=== PATIENT | female | born 1995 | race Caucasian/White ===

== ENCOUNTER 2019-01-02 09:59 | Emergency (ER) | payer MEDICAID, OTHER ==
[~2019-01-02] VITALS: Ht 160 cm; Wt 53.9 kg
[2019-01-02 10:06] VITALS: BP 115/57; PULSE 69; RESP 17; Ht 160 cm; Wt 53.9 kg
--- NOTE | 2019-01-02 12:48 | ERD ---
ER Documentation Chief Complaint Chief Complaint 17 WEEKS CO LOWER ABD PAIN. DENIES ANY VB HPI 23-year-old female presenting with pelvic cramping. Patient is about 17 weeks and states this morning she had very intense cramping. Denies any vaginal bleeding or fluid discharge from her pelvic region. A0. LNMP September 11. Being seen at [facility]. Denies medical problems. NKDA. Surgical history denies. Social history denies ROS All systems reviewed and are negative except as per history of present illness. Allergies Allergies: Coded Allergies: No Known Allergy (Unverified , 01/02/19) PMhx/Soc History of Surgery: No Anesthesia Reaction: No Hx Neurological Disorder: No Hx Respiratory Disorders: No Hx Cardiac Disorders: No Hx Psychiatric Problems: No Hx Miscellaneous Medical Probl: No Hx Alcohol Use: No Hx Substance Use: No Hx Tobacco Use: No Smoking Status: Never smoker FmHx Family History: No diabetes, No coronary disease, No other Physical Exam Vitals Vital Signs Date Temp Pulse Resp B/P (MAP) Pulse Ox O2 O2 Flow FiO2 Time Delivery Rate 01/02/19 98.4 69 17 115/57 99 10:06 (76) Physical Exam GENERAL: The patient is well-appearing, well-nourished, in no acute distress CHEST: Clear to auscultation bilaterally. There are no rales, wheezes or rhonchi. HEART: Regular rate and rhythm. No murmurs, clicks, rubs or gallops. ABDOMEN:Soft, nontender and nondistended. Good bowel sounds. No rebound or guarding. No gross peritonitis. No gross organomegaly or masses. Result Diagram: 01/02/19 1104 01/02/19 1104 Results 24 hrs Laboratory Tests Test 01/02/19 11:00 01/02/19 11:04 Urine Color YELLOW Urine Clarity SLIGHTLY CLOUDY Urine pH 8.0 Urine Specific [place] 1.017 Urine Ketones NEGATIVE mg/dL Urine Nitrite NEGATIVE mg/dL Urine Bilirubin NEGATIVE mg/dL Urine Urobilinogen NEGATIVE mg/dL Urine Leukocyte Esterase TRACE Caesar/ul Urine Microscopic RBC 0 /HPF Urine Microscopic WBC 2 /HPF Urine Squamous Epithelial Cells MODERATE /HPF Urine Bacteria FEW /HPF Urine Hemoglobin NEGATIVE mg/dL Urine Glucose NEGATIVE mg/dL Urine Total Protein NEGATIVE mg/dl White Blood Count 7.0 10^3/ul Red Blood Count 4.35 10^6/ul Hemoglobin 12.9 g/dl Hematocrit 38.4 % Mean Corpuscular Volume 88.3 fl Mean Corpuscular Hemoglobin 29.7 pg Mean Corpuscular Hemoglobin Concent 33.6 g/dl Red Cell Distribution Width 13.2 % Platelet Count 232 10^3/UL Mean Platelet Volume 10.2 fl Immature Granulocytes % 0.400 % Neutrophils % 70.9 % Lymphocytes % 19.4 % Monocytes % 7.6 % Eosinophils % 1.0 % Basophils % 0.7 % Nucleated Red Blood Cells % 0.0 /100WBC Immature Granulocytes # 0.030 10^3/ul Neutrophils # 5.0 10^3/ul Lymphocytes # 1.4 10^3/ul Monocytes # 0.5 10^3/ul Eosinophils # 0.1 10^3/ul Basophils # 0.1 10^3/ul Nucleated Red Blood Cells # 0.0 10^3/ul Sodium Level 138 mmol/L Potassium Level 4.4 mmol/L Chloride Level 106 mmol/L Carbon Dioxide Level 25 mmol/L Anion Gap 7 Blood Urea Nitrogen 8 mg/dl Creatinine 0.54 mg/dl Est Glomerular Filtrat Rate mL/min > 60 mL/min Glucose Level 78 mg/dl Calcium Level 9.2 mg/dl Total Bilirubin 0.7 mg/dl Direct Bilirubin 0.00 mg/dl Indirect Bilirubin 0.7 mg/dl Aspartate Amino Transf (AST/SGOT) 18 IU/L Alanine Aminotransferase (ALT/SGPT) 13 IU/L Alkaline Phosphatase 42 IU/L Total Protein 7.0 g/dl Albumin 3.9 g/dl Globulin 3.10 g/dl Albumin/Globulin Ratio 1.25 Lipase 142 U/L Procedures/[facility] DIAGNOSTIC IMAGING REPORT Patient: RADHA CHRISTENSEN : 1995 Age: 23 Sex: F MR #: [id number] DOS: 01/02/19 1055 Ordering MD: CASSIE RENEE PA-C Location: [facility] Room/Bed: PROCEDURE: US Obstetrical, limited CLINICAL INDICATION: Pelvic cramping TECHNIQUE: Multiple real-time images were acquired of the patient's maternal abdomen utilizing a curved array transducer. COMPARISON: None available FINDINGS: There is a single live intrauterine fetus positioned transversely with the head to the maternal right. The placenta is implanted anteriorly and is grade 1. No of placenta previa or abruptio is evident. The cervix is closed and measures 6.9 cm in length. The amniotic fluid index measures 15.2 cm. The heart rate is 139 beats per minute. Measurements: BPD: 3.58 cm, corresponds to a age of 17 weeks 0 days Head circumference: 13.61 cm, corresponds to a age of 17 weeks 0 days Abdominal circumference: 11.08 cm, corresponds to a age of 16 weeks 6 days Femoral length: 2.35 cm, corresponds to a age of 17 weeks 0 days Average age by ultrasound: 17 weeks 0 days plus or minus 1 week 1 day. Estimated weight: 177 g plus or minus 27 g. The EFW falls at 92%. IMPRESSION: 1. Single live intrauterine fetus, transverse presentation with the head to the maternal right. The heart rate is 139 bpm. 2. Anterior placenta, grade 1, no previa or abruptio is evident. 3. The cervix is closed and a trace measures 6.9 cm. 4. Estimated age by ultrasound: 17 weeks 0 days plus or minus 1 week 1 day. The estimated weight is 177 g. The EFW falls at 92%. The estimated date of delivery based on today's sonogram is 06/12/2019. MDM: 23-year-old female presenting with cramping. Patient's blood work and urine are negative. Ultrasound is within normal limits. Patient may have some mild dehydration which is causing some cramping however low suspicion for complication due to at this time. Patient is discharged with strict ER precautions and recommended follow-up with primary care. All questions answered at discharge Departure Diagnosis: Primary Impression: Abdominal cramps Condition: Stable Patient Instructions: : Common Questions Referrals: [facility] YOU HAVE RECEIVED A MEDICAL SCREENING EXAM AND THE RESULTS INDICATE THAT YOU DO NOT HAVE A CONDITION THAT REQUIRES URGENT TREATMENT IN THE EMERGENCY DEPARTMENT. FURTHER EVALUATION AND TREATMENT OF YOUR CONDITION CAN WAIT UNTIL YOU ARE SEEN IN YOUR DOCTORS OFFICE WITHIN THE NEXT 1-2 DAYS. IT IS YOUR RESPONSIBILITY TO MAKE AN APPOINTMENT FOR FOLOW-UP CARE. IF YOU HAVE A PRIMARY DOCTOR --you should call your primary doctor and schedule an appointment IF YOU DO NOT HAVE A PRIMARY DOCTOR YOU CAN CALL OUR PHYSICIAN REFERRAL HOTLINE AT IF YOU CAN NOT AFFORD TO SEE A PHYSICIAN YOU CAN CHOSE FROM THE FOLLOWING [facility] [address] [facility] [address] [facility] [address] [facility] [address] [facility]. [facility] [address] [facility]. [facility] [address] Additional Instructions: FOLLOW UP WITH YOUR PRIMARY CARE PHYSICIAN TOMORROW.Return to this facility if you are not improving as expected. RALPH RENEE PA-C Jan 02, 2019 12:48
== END 2019-01-02 11:45 | disposition home or self-care (01) ==
LOC: FTE 09:59
DX: O26.892 Other specified pregnancy related conditions, second trimester (principal); R10.30 Lower abdominal pain, unspecified; Z3A.17 17 weeks gestation of pregnancy
CPT/HCPCS: 36415; 76805; 76817; 80053; 81001; 83690; 85025; Z7502

== ENCOUNTER 2019-05-05 07:50 | Outpatient (CLI) | payer MEDICAID ==
[~2019-05-05] VITALS: Ht 160 cm; Wt 63.8 kg
[~2019-05-05 07:50] MED LIST: ACET500C5 PO; PREN1TAB71 PO
[2019-05-05 08:12] VITALS: Ht 160 cm; Wt 63.8 kg
[2019-05-05 08:13] VITALS: BP 102/65
--- NOTE | 2019-05-05 10:54 | PN ---
Triage Information Date/Time Reason for visit: Hip pain/sciatica pain Weeks of Gestation Patient is a 24-year-old 1 para 0 at 34 weeks and 2 days of gestation with estimated date of delivery June 14, 2019 Patient presents with chief complaint of hip pain with the pain level 9 out of 10 since last night. She reports that she took Tylenol which did not help with her pain She receives care at [facility] Patient reports positive movement, denies vaginal bleeding and leaking fluid, denies uterine contractions /Para Diabetes: none Hypertention: none Objective Vital Signs Date Temp Pulse Resp B/P (MAP) Pulse Ox O2 O2 Flow FiO2 Time Delivery Rate 05/05/19 98.0 102/65 Room Air 08:13 (77) Heart Rate: 140's Heart Rate Comments heart rate tracing category 1 Contractions: None Results/Medications Imaging Results PROCEDURE: US OB biophysical profile. CLINICAL INDICATION: decreased movements. Right-sided pain TECHNIQUE: Multiple sonographic images of the pelvis were obtained. The images were reviewed on a PACS workstation. COMPARISON: 01/02/2019 FINDINGS: Cervix length is 3.7 cm There is a single live intrauterine gestation. Cardiac activity is present with 132 beats per minute. There is a vertex presentation. The placenta is anterior, grade 1. There is no evidence of placental abruption. PHAN = 11.2 cm. Biophysical profile: movement 2/2 tone 2/2. breathing 2/2 PHAN 2/2 Total 04/29 RPTAT: AA . IMPRESSION: Normal biophysical profile. Physician Rama Date Time Electronically viewed and signed by Physician Rama on 05/05/2019 09:27 NS/ CC: GREY FRANCO MD [id number] PROCEDURE: US OB. CLINICAL INDICATION: 01/02/2019 TECHNIQUE: Multiple sonographic images of the pelvis were obtained. The images were reviewed on a PACS workstation. COMPARISON: No prior studies are available for comparison. FINDINGS: There is a single viable intrauterine gestation. Cardiac activity is present with 128 beats per minute. There is a vertex presentation. Measurements were made in order to determine age. The results are as follows: BPD = 8.8 cm corresponding to 35 weeks 5 days HC = 31.9 cm corresponding to 35 weeks 6 days AC = 30.2 cm corresponding to 34 weeks 1 day FL = 6.5 cm corresponding to 33 weeks 5 days. Estimated gestational age of approximately 34 weeks 6 days. The estimated date of delivery is 06/10/2019. The EFW = 2414 g, 39% The placenta is anterior, grade I. There is no evidence for an abruption or placenta previa. IMPRESSION: Single viable intrauterine gestation of approximately 34 weeks 6 days. The estimated date of delivery is 06/10/2019 . Physician Rama Date Time Electronically viewed and signed by Physician Rama on 05/05/2019 09:18 NS/ CC: GREY FRANCO MD [id number] Disposition: Discharge Assessment/Plan kick count instructions were given Labor precautions were given Patient was sent down to the emergency department for further evaluation of her hip pain Patient instructed to follow-up with [facility] in 1 to 2 days GREY FRANCO MD May 05, 2019 10:54
== END 2019-05-05 09:50 | disposition home or self-care (01) ==
LOC: OBT 07:50 → L-D 07:52 → OBT 09:50
PROVIDERS: ATTEND Obstetrics & Gynecology Gynecology
DX: O26.893 Other specified pregnancy related conditions, third trimester (principal); Z3A.34 34 weeks gestation of pregnancy; M25.559 Pain in unspecified hip; M54.30 Sciatica, unspecified side
CPT/HCPCS: 76815; 76817; 76818; Z7500; G0463

== ENCOUNTER 2019-05-05 10:12 | Emergency (ER) | payer MEDICAID, OTHER ==
[~2019-05-05] VITALS: Ht 160 cm; Wt 63.2 kg
[2019-05-05 10:16] VITALS: BP 110/67; PULSE 65; RESP 20; Ht 160 cm; Wt 63.2 kg
[2019-05-05] MEDS ORDERED: ACETAMINOPHEN 500 MG TAB PO STA (10:30)
--- NOTE | 2019-05-05 10:46 | ERD ---
ER Documentation Chief Complaint Chief Complaint cleared by OB - left hip pain - 34 weeks HPI 24-year-old female presenting with hip pain. Patient is about 34 weeks with no complications. She has severe pain to her left hip which is worse with walking. She denies any numbness or tingling and no changes in urination or bowel movement. No recent falls or injuries. She has not taken medications for her symptoms. Denies other medical problems. NKDA. Surgical history denies. Social history denies ROS All systems reviewed and are negative except as per history of present illness. Medications Home Meds Active Scripts Acetaminophen* (Tylophen*) 500 Mg Capsule, 2 CAP PO Q8H PRN for PAIN AND OR ELEVATED TEMP, #20 CAP Prov:RALPH RENEE PA-C 05/05/19 Reported Medications Vit No.130/Iron/FA ( Tablet) 1 Each Tablet, 1 EACH PO 05/05/19 Allergies Allergies: Coded Allergies: No Known Allergy (Unverified , 01/02/19) PMhx/Soc History of Surgery: No Anesthesia Reaction: No Hx Neurological Disorder: No Hx Respiratory Disorders: No Hx Cardiac Disorders: No Hx Psychiatric Problems: No Hx Miscellaneous Medical Probl: No Hx Alcohol Use: No Hx Substance Use: No Hx Tobacco Use: No Smoking Status: Never smoker FmHx Family History: No diabetes, No coronary disease, No other Physical Exam Vitals Vital Signs Date Temp Pulse Resp B/P (MAP) Pulse Ox O2 O2 Flow FiO2 Time Delivery Rate 05/05/19 97.8 65 20 110/67 98 10:16 (81) Physical Exam GENERAL: The patient is well-appearing, well-nourished, in no acute distress CHEST: Clear to auscultation bilaterally. There are no rales, wheezes or rho nchi. HEART: Regular rate and rhythm. No murmurs, clicks, rubs or gallops. BACK: No midline or flank tenderness. Tender palpation down left buttock extending down left leg. EXTREMITIES: Equal pulses bilaterally. There is no peripheral clubbing, cyanosi s or edema. No focal swelling or erythema. Full range of motion. Grossly neurovascularly intact. NEUROLOGIC: Alert and oriented. Cranial nerves II through XII intact. Motor strength in all 4 extremities with 5 out of 5 strength. Sensation grossly int act. Normal speech and gait. SKIN: There is no apparent rash or petechiae. The skin is warm and dry. Results 24 hrs Current Medications Medications Dose Sig/Cresencio Start Time Status Last (Trade) Ordered Route PRN Stop Time Admin Dose Reason Admin 1,000 mg ONCE STAT 05/05/19 DC 05/05/19 Acetaminophen PO 10:30 10:35 (Tylenol 05/05/19 10:31 Tab) Procedures/MDM MDM: 24-year-old female presenting with hip pain and back pain. Patient likely has inflammation due to sciatica in . I have low suspicion for urinary tract infection as patient does not have CVA tenderness. Patient has no other complaints. I have low suspicion for acute fracture dislocation and I do not feel blood work or imaging is indicated. Departure Diagnosis: Primary Impression: Hip pain Condition: Stable Patient Instructions: Back Pain W/ Sciatica Referrals: [facility] YOU HAVE RECEIVED A MEDICAL SCREENING EXAM AND THE RESULTS INDICATE THAT YOU DO NOT HAVE A CONDITION THAT REQUIRES URGENT TREATMENT IN THE EMERGENCY DEPARTMENT. FURTHER EVALUATION AND TREATMENT OF YOUR CONDITION CAN WAIT UNTIL YOU ARE SEEN IN YOUR DOCTORS OFFICE WITHIN THE NEXT 1-2 DAYS. IT IS YOUR RESPONSIBILITY TO MAKE AN APPOINTMENT FOR FOLOW-UP CARE. IF YOU HAVE A PRIMARY DOCTOR --you should call your primary doctor and schedule an appointment IF YOU DO NOT HAVE A PRIMARY DOCTOR YOU CAN CALL OUR PHYSICIAN REFERRAL HOTLINE AT IF YOU CAN NOT AFFORD TO SEE A PHYSICIAN YOU CAN CHOSE FROM THE FOLLOWING [facility] [address] [facility] [facility] [address] [facility] [facility] [address] [facility] [facility] [address] [facility]. [facility] [address] [facility] [facility]. [address] Additional Instructions: FOLLOW UP WITH YOUR PRIMARY CARE PHYSICIAN TOMORROW.Return to this facility if you are not improving as expected. RALPH RENEE PA-C May 05, 2019 10:46
== END 2019-05-05 11:09 | disposition home or self-care (01) ==
LOC: FTE 10:12
DX: O99.89 Other specified diseases and conditions complicating pregnancy, childbirth and the puerperium (principal); M25.552 Pain in left hip; Z3A.34 34 weeks gestation of pregnancy
CPT/HCPCS: Z7502; Z7610; 99282

== ENCOUNTER 2019-05-14 06:45 | Outpatient (CLI) | payer OTHER ==
[~2019-05-14] VITALS: Ht 162.6 cm; Wt 62.6 kg
[2019-05-14 06:54] VITALS: Ht 162.6 cm; Wt 62.6 kg
[2019-05-14 06:58] VITALS: BP 113/69; PULSE 67; RESP 18
[2019-05-14] MEDS ORDERED: TERBUTALINE 1 MG/ML INJ SC ONE (07:30)
== END 2019-05-14 09:05 | disposition home or self-care (01) ==
LOC: L-D 06:45 → OBT 06:45
PROVIDERS: ATTEND Obstetrics & Gynecology
DX: O26.893 Other specified pregnancy related conditions, third trimester (principal); Z3A.35 35 weeks gestation of pregnancy; R10.2 Pelvic and perineal pain
CPT/HCPCS: 76818; 81003; 87086; 96372; J3105; Z7500; G0463

== ENCOUNTER 2019-05-18 18:13 | Outpatient (CLI) | payer OTHER ==
[~2019-05-18] VITALS: Ht 160 cm; Wt 65.5 kg
[2019-05-18 18:22] VITALS: Ht 160 cm; Wt 65.5 kg
== END 2019-05-18 21:21 | disposition home or self-care (01) ==
LOC: OBT 18:13 → L-D 18:14 → OBT 21:21
PROVIDERS: ATTEND Obstetrics & Gynecology
DX: O26.893 Other specified pregnancy related conditions, third trimester (principal); R10.2 Pelvic and perineal pain; Z3A.36 36 weeks gestation of pregnancy
CPT/HCPCS: 76815; 80053; 80307; 81001; 85025; G0463

== ENCOUNTER 2019-06-03 13:05 | Outpatient (CLI) | payer OTHER ==
[~2019-06-03] VITALS: Ht 162.6 cm; Wt 68.0 kg
[~2019-06-03 13:05] MED LIST changes: +CYCL10TA7 PO; +IBUP800T48 PO
[2019-06-03 13:59] VITALS: Ht 162.6 cm; Wt 68.0 kg
[2019-06-03 14:00] VITALS: BP 129/79; PULSE 131; RESP 18
== END 2019-06-03 18:00 | disposition home or self-care (01) ==
LOC: OBT 13:05 → L-D 13:06 → OBT 18:00
PROVIDERS: ATTEND Obstetrics & Gynecology Obstetrics
DX: O42.92 Full-term premature rupture of membranes, unspecified as to length of time between rupture and onset of labor (principal); Z3A.38 38 weeks gestation of pregnancy
CPT/HCPCS: 76818; 81001; 84112; Z7500; 81003; G0463

== ENCOUNTER 2019-06-04 12:31 | Outpatient (CLI) | payer OTHER ==
[~2019-06-04] VITALS: Ht 162.6 cm; Wt 66.2 kg
[2019-06-04 13:34] VITALS: BP 120/68; PULSE 78; RESP 18; Ht 162.6 cm; Wt 66.2 kg
== END 2019-06-04 15:20 | disposition home or self-care (01) ==
LOC: OBT 12:31 → L-D 12:32 → OBT 15:20
PROVIDERS: ATTEND Obstetrics & Gynecology
DX: O41.03X0 Oligohydramnios, third trimester, not applicable or unspecified (principal); Z3A.38 38 weeks gestation of pregnancy
CPT/HCPCS: 76818; Z7500; G0463